=== PATIENT | male | born 1980 | race Caucasian/White ===

== ENCOUNTER 2018-10-22 12:17 | Emergency (ER) | payer SELFPAY ==
[~2018-10-22] VITALS: Ht 167.6 cm; Wt 89.0 kg
[2018-10-22 12:25] VITALS: BP 125/88; PULSE 69; RESP 16; Ht 167.6 cm; Wt 89.0 kg
[2018-10-22] MEDS ORDERED: PRED20TA PO (12:55)
[2018-10-22] MEDS ORDERED: METHYLPREDNISOLONE 125 MG INJ IM ONE (13:00)
--- NOTE | 2018-10-22 13:50 | ERD ---
ER Documentation Chief Complaint Chief Complaint GENERALIZED RASH AFTER TAKING MED AT HOME YESTERDAY, DENIES SOB HPI Patient is a 38 year old male who presents for a 2 day history of moderately diffuse itchy body rash after starting Metronidazole, Clarithromycin, and Omeprazole 4 days ago for his H. pylori. Patient states that he took yesterday and today Benadryl at home with minimal relief of his symptoms. Otherwise, denies any fever, chills, throat pain, or shortness of breath. ROS All systems reviewed and are negative except as per history of present illness. Medications Home Meds Active Scripts Prednisone* (Prednisone*) 20 Mg Tab, 40 MG PO DAILY for 4 Days, TAB Prov:USMAN QUILES PA-C 10/22/18 Allergies Allergies: Coded Allergies: Penicillins (Verified Allergy, Unknown, 10/22/18) PMhx/Soc Medical and Surgical Hx: pt denies Medical Hx, pt denies Surgical Hx Hx Alcohol Use: No Hx Substance Use: No Hx Tobacco Use: No Smoking Status: Never smoker Physical Exam Vitals Vital Signs Date Temp Pulse Resp B/P (MAP) Pulse Ox O2 O2 Flow FiO2 Time Delivery Rate 10/22/18 98.7 69 16 125/88 97 12:25 (100) Physical Exam Const: No acute distress Head: Atraumatic Eyes: Normal Conjunctiva ENT: Normal External Ears, Nose and Mouth. Neck: Full range of motion. No meningismus. Resp: Clear to auscultation bilaterally Cardio: Regular rate and rhythm, no murmurs Abd: Soft, non tender, non distended. Normal bowel sounds Skin: (+) diffuse pruritic hives on the face, trunk, and extremities Back: No midline or flank tenderness Ext: No cyanosis, or edema Neur: Awake and alert Psych: Normal Mood and Affect Results 24 hrs Current Medications Medications Dose Sig/Angi Start Time Status Last (Trade) Ordered Route PRN Stop Time Admin Dose Reason Admin 125 mg ONCE ONCE 10/22/18 DC 10/22/18 Methylprednis IM 13:00 10/22/18 13:02 olone Sodium 13:01 Succinate (Solu-Medrol) Procedures/MDM Patient is a 38 year old male who presents with diffuse body hives. Patient is well appearing, with no signs of respiratory distress, including facial swelling, tongue swelling, or shortness of breath. Patient was given Solu-Medrol in the ED with good resolution of his symptoms. Patient's vital signs have remained stable in the ED and the patient is in good condition for discharge. ER return precautions were given. Patient was advised to discontinue his Metronidaz ole and Clarithromycin and to follow-up with his PCP for referral to an palliative senior np for further evaluation today. Stable to be dc home Departure Diagnosis: Primary Impression: Hives Condition: Stable Patient Instructions: Hives Referrals: DOCTOR,NOT ON STAFF (PCP) Additional Instructions: Suspenda los antibiticos hasta que pueda hacer un seguimiento con el mdico de cabecera. Cuando kaycee a peck mdico de atencin primaria, obtenga estevan referencia para tatyana a un alergista. [place] Banophen cada 6 horas. Comience la prednisona maana. La medicina que se le recet puede causarle sueo.NO DEBE MANEJAR NI OPERAR M AQUINARIAS PELIGROSAS mientras esta tomando esta medicina! Regrese a estas instalaciones si no se mejora ruth esperbamos o ruth le dijimos. USMAN QUILES PA-C Oct 22, 2018 13:50
== END 2018-10-22 13:47 | disposition home or self-care (01) ==
LOC: FTE 12:17
DX: L50.9 Urticaria, unspecified (principal)
CPT/HCPCS: 96372; 99284; J2930